=== PATIENT | female | born 1950 | race Hispanic/Latino ===

== ENCOUNTER 2020-01-07 17:26 | Emergency (ER) | payer MEDICARE ==
[~2020-01-07] VITALS: Ht 152.4 cm; Wt 62.6 kg
[~2020-01-07 17:26] MED LIST: OXCARBAZEPINE300 MG PO; VALPROIC ACID PO
[2020-01-07 18:56] LABS: BASOPHILS % 0.2 % (0.0-1.0); HEMATOCRIT 35.1 % (34.2-44.1); LYMPHOCYTES # (AUTO) 1.3 (1.0-3.2); LYMPHOCYTES % 13.6 % (18.0-39.1); MEAN CORPUSCULAR HEMOGLOBIN 26.8 pg (28-32); MEAN CORPUSCULAR HGB CONC 31.3 g/dL (31-35); MEAN CORPUSCULAR VOLUME 85.4 fL (81-99); MONOCYTES # (AUTO) 0.5 (0.2-0.8); MONOCYTES % 5.1 % (4.4-11.3); NEUTROPHILS # (AUTO) 7.4 (2.1-6.9); NEUTROPHILS % 80.8 % (38.7-80.0); PLATELET COUNT 356 x10e3/uL (140-360); RED BLOOD COUNT 4.11 x10e6/uL (3.6-5.1)
[2020-01-07 19:14] LABS: ALANINE AMINOTRANSFERASE 12 IU/L (0-55); ALBUMIN 2.7 g/dL (3.5-5.0); ALBUMIN/GLOBULIN RATIO 0.7 (0.8-2.0); ALKALINE PHOSPHATASE 63 IU/L (40-150); ANION GAP 19.6 mmol/L (8-16); BLOOD UREA NITROGEN 33 mg/dL (7-26); BUN/CREATININE RATIO 42 (6-25); CALCIUM 8.5 mg/dL (8.4-10.2); CARBON DIOXIDE 30 mmol/L (22-29); CHLORIDE 93 mmol/L (98-107); CREATINE KINASE 113 IU/L (29-168); CREATININE, SERUM 0.78 mg/dL (0.57-1.11); EST GLOMERULAR FILTRATION RATE > 60 ML/MIN (60-); GLUCOSE 108 mg/dL (74-118); POTASSIUM 3.6 mmol/L (3.5-5.1); SODIUM 139 mmol/L (136-145)
[2020-01-07 21:03] LABS: CLARITY,URINE CLEAR (CLEAR); COLOR,URINE YELLOW (YELLOW)
[2020-01-07 21:04] LABS: BILIRUBIN,URINE LARGE (NEGATIVE); KETONES,URINE 2+ (NEGATIVE); LEUKOCYTE ESTERASE ,URINE NEGATIVE (NEGATIVE); NITRITE,URINE NEGATIVE (NEGATIVE); PROTEIN,URINE DIPSTICK 1+ (NEGATIVE); URINE UROBILINOGEN 1 mg/dL (0.2 - 1)
[2020-01-07 21:12] LABS: BACTERIA,URINE FEW /HPF; EPITHELIAL CELLS,URINE FEW /LPF; MUCUS,URINE MODERATE (RARE); RBC,URINE 0-5 /HPF (0-5)
[2020-01-07] MEDS ORDERED: SODIUM CHLORIDE 0.9% 1000ML 1,000 ML IV ONE (21:15)
[2020-01-07] MEDS ORDERED: SODIUM CHLORIDE 0.9% 1000ML 1,000 ML ONE (21:17)
[2020-01-07 23:29] VITALS: BP 105/67
== END 2020-01-07 23:16 | disposition home or self-care (01) ==
LOC: ER 17:37
DX: F03.90 Unspecified dementia, unspecified severity, without behavioral disturbance, psychotic disturbance, mood disturbance, and anxiety (principal); E86.0 Dehydration; N39.0 Urinary tract infection, site not specified; R53.1 Weakness; Z87.820 Personal history of traumatic brain injury
CPT/HCPCS: 36415; 70450; 71045; 80053; 81001; 82550; 82553; 84484; 85025; 93005; 99284; J7030

== ENCOUNTER 2020-05-18 15:00 | Observation (INO) | payer MEDICARE ==
[~2020-05-18] VITALS: Ht 149.9 cm; Wt 62.6 kg
[2020-05-18 16:12] LABS: BASOPHILS % 0.3 % (0.0-1.0); HEMATOCRIT 32.3 % (34.2-44.1); HEMOGLOBIN 10.9 g/dL (12.0-16.0); LYMPHOCYTES # (AUTO) 1.6 (1.0-3.2); LYMPHOCYTES % 22.6 % (18.0-39.1); MEAN CORPUSCULAR HEMOGLOBIN 28.2 pg (28-32); MEAN CORPUSCULAR HGB CONC 33.7 g/dL (31-35); MEAN CORPUSCULAR VOLUME 83.7 fL (81-99); MONOCYTES # (AUTO) 0.4 (0.2-0.8); MONOCYTES % 5.5 % (4.4-11.3); NEUTROPHILS # (AUTO) 4.9 (2.1-6.9); NEUTROPHILS % 70.7 % (38.7-80.0); PLATELET COUNT 232 x10e3/uL (140-360); RED BLOOD COUNT 3.86 x10e6/uL (3.6-5.1); RED CELL DISTRIBUTION WIDTH 14.5 % (11.7-14.4)
[2020-05-18 16:18] LABS: CLARITY,URINE SL CLOUDY (CLEAR); COLOR,URINE YELLOW (YELLOW)
[2020-05-18 16:19] LABS: KETONES,URINE 1+ (NEGATIVE); LEUKOCYTE ESTERASE ,URINE NEGATIVE (NEGATIVE); NITRITE,URINE NEGATIVE (NEGATIVE); PROTEIN,URINE DIPSTICK NEGATIVE (NEGATIVE); URINE UROBILINOGEN 1 mg/dL (0.2 - 1)
[2020-05-18 16:22] LABS: INR 0.86; PROTHROMBIN TIME 12.3 seconds (11.9-14.5)
[2020-05-18 16:23] LABS: PARTIAL THROMBOPLASTIN TIME 28.1 seconds (23.8-35.5)
[2020-05-18 16:26] LABS: AMORPHOUS SEDIMENT,URINE MODERATE (FEW); BACTERIA,URINE MODERATE /HPF; EPITHELIAL CELLS,URINE RARE /LPF; MUCUS,URINE MODERATE (RARE)
[2020-05-18 16:30] LABS: ALANINE AMINOTRANSFERASE 13 IU/L (0-55); ALBUMIN 3.4 g/dL (3.5-5.0); ALBUMIN/GLOBULIN RATIO 0.9 (0.8-2.0); ALKALINE PHOSPHATASE 66 IU/L (40-150); ANION GAP 12.4 mmol/L (8-16); BLOOD UREA NITROGEN 7 mg/dL (7-26); BUN/CREATININE RATIO 11 (6-25); CALCIUM 8.5 mg/dL (8.4-10.2); CARBON DIOXIDE 27 mmol/L (22-29); CHLORIDE 92 mmol/L (98-107); CREATINE KINASE 200 IU/L (29-168); CREATININE, SERUM 0.64 mg/dL (0.57-1.11); EST GLOMERULAR FILTRATION RATE > 60 ML/MIN (60-); GLUCOSE 106 mg/dL (74-118); MAGNESIUM 1.7 MG/DL (1.3-2.1); POTASSIUM 4.4 mmol/L (3.5-5.1); SODIUM 127 mmol/L (136-145)
[2020-05-18] MEDS ORDERED: SODIUM CHLORIDE 0.9% 1000ML 1,000 ML IV SCH (17:30)
[2020-05-18] MEDS ORDERED: DEPAKOTE DELAYED-RELEASE TAB 500 MG PO ONE (18:30)
[2020-05-18] MEDS: SODIUM CHLORIDE 0.9% 1000ML 1,000 ML IV SCH (18:44)
[2020-05-18] MEDS ORDERED: ONDANSETRON HCL INJ 2MG/ML 2ML 2 MG/ML VIAL IV PRN (18:45)
[2020-05-18 20:15] VITALS: BP 119/84
[2020-05-18 21:00] VITALS: BP 104/72
[2020-05-18] MEDS ORDERED: VALPROATE SOD INJ 500 MG in SODIUM CHLORIDE 0.9% 100 ML 100 ML INJ SCH (21:00)
[2020-05-18 21:24] VITALS: BP 104/72
[2020-05-18] MEDS ORDERED: ASPIRIN81 MG PO (21:43)
[2020-05-18] MEDS ORDERED: ACETAMINOPHEN 325 MG TAB PO PRN (23:00)
[2020-05-19] VITALS (7 sets, daily range): BP systolic 101–117; BP diastolic 47–72
[2020-05-19 01:20] LABS: CREATINE KINASE 137 IU/L (29-168)
[2020-05-19] MEDS: SODIUM CHLORIDE 0.9% 1000ML 1,000 ML IV SCH ×3 (04:45→23:41)
[2020-05-19 06:55] LABS: BASOPHILS % 0.3 % (0.0-1.0); HEMATOCRIT 30.7 % (34.2-44.1); HEMOGLOBIN 10.4 g/dL (12.0-16.0); LYMPHOCYTES # (AUTO) 1.3 (1.0-3.2); LYMPHOCYTES % 17.4 % (18.0-39.1); MEAN CORPUSCULAR HEMOGLOBIN 28.4 pg (28-32); MEAN CORPUSCULAR HGB CONC 33.9 g/dL (31-35); MEAN CORPUSCULAR VOLUME 83.9 fL (81-99); MONOCYTES # (AUTO) 0.4 (0.2-0.8); MONOCYTES % 5.9 % (4.4-11.3); NEUTROPHILS # (AUTO) 5.6 (2.1-6.9); PLATELET COUNT 208 x10e3/uL (140-360); RED BLOOD COUNT 3.66 x10e6/uL (3.6-5.1); RED CELL DISTRIBUTION WIDTH 14.5 % (11.7-14.4)
[2020-05-19 07:07] LABS: ALANINE AMINOTRANSFERASE 11 IU/L (0-55); ALBUMIN 3.1 g/dL (3.5-5.0); ALBUMIN/GLOBULIN RATIO 0.9 (0.8-2.0); ALKALINE PHOSPHATASE 57 IU/L (40-150); ANION GAP 12.9 mmol/L (8-16); BLOOD UREA NITROGEN < 5 mg/dL (7-26); BUN/CREATININE RATIO 9 (6-25); CALCIUM 7.9 mg/dL (8.4-10.2); CARBON DIOXIDE 23 mmol/L (22-29); CHLORIDE 102 mmol/L (98-107); CREATININE, SERUM 0.54 mg/dL (0.57-1.11); EST GLOMERULAR FILTRATION RATE > 60 ML/MIN (60-); GLUCOSE 83 mg/dL (74-118); POTASSIUM 3.9 mmol/L (3.5-5.1); SODIUM 134 mmol/L (136-145)
[2020-05-19 07:30] LABS: CREATINE KINASE MB 2.2 ng/mL (0-5.0)
[2020-05-19 07:42] LABS: % IRON SATURATION 11 % (15-50); IRON 39 ug/dL (50-170); TOTAL IRON BINDING CAPACITY 340 ug/dL (261-478); TRANSFERRIN 243 mg/dL (180-382)
[2020-05-19] MEDS: ASPIRIN 81 MG CHEW TAB PO SCH (09:00)
[2020-05-19] MEDS: DIVALPROEX SODIUM 250 MG TAB...DR PO SCH ×2 (09:00→16:23)
[2020-05-19] MEDS: OXCARBAZEPINE 300 MG TAB PO SCH ×2 (09:00→16:23)
[2020-05-19] MEDS ORDERED: PNEUMOCOCCAL VACCINE POLYVALENT 23 MCG/0.5 ML VIAL IM SCH (12:00)
[2020-05-19] MEDS ORDERED: DEPAKOTE ER500 MG PO (12:31)
[2020-05-19] MEDS ORDERED: FAMOTIDINE20 MG PO (12:31)
[2020-05-19] MEDS ORDERED: ALTOPREV40 MG PO (12:31)
[2020-05-19] MEDS ORDERED: EUTHYROX25 MCG PO (12:31)
[2020-05-19 12:40] LABS: CREATINE KINASE 90 IU/L (29-168)
[2020-05-20] VITALS: BP 102/63
[2020-05-20 04:00] VITALS: BP 111/63
[2020-05-20 07:49] VITALS: BP 102/58
[2020-05-20 08:01] VITALS: BP 102/58
[2020-05-20] MEDS: DIVALPROEX SODIUM 250 MG TAB...DR PO SCH (08:59)
[2020-05-20] MEDS: SODIUM CHLORIDE 0.9% 1000ML 1,000 ML IV SCH (08:59)
[2020-05-20] MEDS: OXCARBAZEPINE 300 MG TAB PO SCH (08:59)
[2020-05-20] MEDS: ASPIRIN 81 MG CHEW TAB PO SCH (08:59)
[2020-05-20 09:00] VITALS: BP 102/58
[2020-05-20 11:48] VITALS: BP 117/66
[2020-05-20] MEDS ORDERED: ONDANSETRON HCL 4 MG ORAL DISINTEGRATING TAB PO PRN (14:15)
== END 2020-05-20 14:48 | disposition home or self-care (01) ==
LOC: ER 15:48 → ERHOLD 18:50 → IMCU 20:41
PROVIDERS: ADMIT Family Medicine; ATTEND Family Medicine
DX: R55 Syncope and collapse (principal); G40.909 Epilepsy, unspecified, not intractable, without status epilepticus; F03.90 Unspecified dementia, unspecified severity, without behavioral disturbance, psychotic disturbance, mood disturbance, and anxiety; E87.1 Hypo-osmolality and hyponatremia; I10 Essential (primary) hypertension; E44.0 Moderate protein-calorie malnutrition; D50.9 Iron deficiency anemia, unspecified; R53.81 Other malaise; Z20.822 Contact with and (suspected) exposure to COVID-19; S01.01XA Laceration without foreign body of scalp, initial encounter; W18.39XA Other fall on same level, initial encounter; Y92.019 Unspecified place in single-family (private) house as the place of occurrence of the external cause; E86.0 Dehydration
CPT/HCPCS: 12002; 36415 ×2; 70450; 71045; 72125; 80053 ×2; 80164; 81001; 82550 ×2; 82553 ×2; 83540; 83735; 83880; 84466; 84484 ×2; 85025 ×2; 85610; 85730; 87086; 93005; 93306; 93880; 97116; 97139; 97161; 99251; 99285; G0378 ×3; J7030 ×2; U0002

== ENCOUNTER 2020-05-27 11:39 | Emergency (ER) | payer MEDICARE ==
[~2020-05-27] VITALS: Ht 149.9 cm; Wt 62.6 kg
[~2020-05-27 11:39] MED LIST changes: +ALTOPREV40 MG PO; +ASPIRIN81 MG PO; +DEPAKOTE ER500 MG PO; +EUTHYROX25 MCG PO; +FAMOTIDINE20 MG PO
== END 2020-05-27 12:05 | disposition home or self-care (01) ==
LOC: ER 11:58
DX: B02.9 Zoster without complications (principal); F03.90 Unspecified dementia, unspecified severity, without behavioral disturbance, psychotic disturbance, mood disturbance, and anxiety; E78.5 Hyperlipidemia, unspecified; K21.9 Gastro-esophageal reflux disease without esophagitis; G40.909 Epilepsy, unspecified, not intractable, without status epilepticus
CPT/HCPCS: 99282